=== PATIENT | female | born 1980 | race Caucasian/White ===

== ENCOUNTER → 2016-10-22 | Outpatient (CLI) | payer OTHER ==
--- NOTE | 2016-10-22 11:14 | US ---
October 22, 2015 Dear Ciera Calderon NP, Thank you for allowing us to see your patient regarding AMA. As you know she is a 35 year-old gravid a 1, para 0. Her due date is 03/07/17 which is based on . Her current gestational age based on is dating is 20 weeks 4 days. She had normal NIPT. Number of fetuses: 1 Placental location: anterior Cord Insertion: Central presentation: variable Cervix: 3.5 cm MVP: 4.7 cm The adnexa were evaluated. No pathology was seen. Right ovary not seen Left ovary not seen Measurements: Biparietal diameter: 49 mm 20 weeks, 6 days Head circumference: 190 mm 21 weeks, 2 days Abdominal circumference: 162 mm 21 weeks, 3 days Femur length: 34 mm 20 weeks, 4 days Humerus length: 32 mm 20 weeks, 4 days Transcerebellar diameter: 22 mm 20 weeks, 3 days Average ultrasound age: 21 weeks, 1 days Estimated weight: 390 gm weight percentile: 68 % ANATOMY Upper extremities: Normal Lower extremities: Normal Supratentorial brain: Normal Lateral ventricle: 5.2 mm Posterior fossa: Normal Cisterna Magna: 3.4 mm Spine: Normal Nuchal fold: 3.4 mm Face: Normal nose, lip, profile, alveolar ridge Heart: Normal rate, rhythm, axis, 4 chamber view, LVOT, RVOT, IVS Stomach: Normal Diaphragm Normal Umbilical cord insertion: Normal Right kidney: Normal Left kidney: Normal Bladder: Normal Number of cord vessels: Three. Impression: This is a 35 year-old, 1, para 0 at 20 weeks, 4 days gestation. 1. SIUP with biometry cw ga of 20 weeks. Nl MVP. No anatomic abnormalities noted. 2. AMA - normal NIPT, I reviewed the detection rate and chromosomes for NIPT and the option of amnioc entesis as well. She declined amniocentesis today, understanding the limitations of NIPT and ultrasou nd in detection of aneuploidy and other syndromes. Thank you for allowing me to see your patient. Approximately 15 minutes was spent with the patient a nd 15 was spent discussing her issues. Sarah Pinto MD Diagnosis Division of Maternal Medicine Department of Obstetrics and Gynecology [facility]
--- NOTE | 2016-10-22 18:31 | US ---
Ultrasound Obstetric Detailed Evaluation Indication: Advanced maternal age. The estimated gestational age by LMP is 20 weeks and 4 days samir damian an EDC of March 07, 2017. Comparison: August 2016. Findings: Number: 1 Presentation: Variable Placental location: Anterior Cervix: 3.5 cm MVP: 4.7 cm heart rate: 146 bpm. Right ovary measures 2.4 x 3 x 0.9 cm 3 left ovary measures 2.1 x 2.2 x 1.1 cm. Biometry: Biparietal diameter: 48.7 mm 20 weeks, 6 days Head circumference: 189.68 mm 21 weeks, 2 days Abdominal circumference: 162.13 mm 21 weeks, 3 days Femur length: 33.65 mm 20 weeks, 4 days Humerus length: 31.57 mm 20 weeks, 4 days Transcerebellar diameter: 21.66 mm 20 weeks, 3 days HC/AC: 1.17 (1.09 - 1.26) FL/BPD: 69% FL/AC: 21% Average ultrasound age: 21 weeks, 1 days EDC based on today's average ultrasound age: March 07, 2017 Estimated weight is 390 gms +/- 57 gms. The estimated weight is at the 68 % based on previous dating. ANATOMY SURVEY: Supratentorial brain: Normal Posterior fossa: Normal Spine: Normal Nuchal fold: Normal Nose and lips: Normal Facial profile: Normal Heart: Four chamber heart. 146 bpm. Intact intraventricular septum. Cardiac outflow tracts: Normal Stomach: Normal Umbilical cord insertion: Normal Kidneys: Normal, no pyelectasis Bladder: Normal Number of cord vessels: Three Upper extremities: Visualized Lower extremities: Visualized. Impression: 1. Living marie in variable presentation. 2. Size concordant with dates. 3. No overt anomalies detected. 4. Please see Dr. Sarah Pinto's consult and recommendations.
== END ==
LOC: FIMAGING 09:24
PROVIDERS: ATTEND Midwife
DX: O09.512 Supervision of elderly primigravida, second trimester (principal); Z3A.21 21 weeks gestation of pregnancy

== ENCOUNTER 2017-01-27 19:41 | Observation (INO) | payer OTHER ==
[2017-01-27 20:14] LABS: ABSOLUTE IMMATURE GRANULOCYTES 0.14 10^3/uL (0.00-0.10); ADD DIFF? NO; ADD MORPH? NO; ADD SCAN? NO; ATYPICAL LYMPHOCYTE FLAG 0 (0-99); FRAGMENT RBC FLAG 0 (0-99); HEMATOCRIT 34.7 % (38.0-47.0); HEMOGLOBIN 11.6 g/dL (12.6-16.3); LEFT SHIFT FLG 10 (0-99); LIPEMIA HEMOLYSIS FLAG 80 (0-99); MEAN CELL HEMOGLOBIN 29.9 pg (27.9-34.1); MEAN CELL HEMOGLOBIN CONCENTR. 33.4 g/dL (32.4-36.7); MEAN CELL VOLUME 89.4 fL (81.5-99.8); MEAN PLATELET VOLUME 11.3 fL (8.7-11.7); PLATELET CLUMPS FLAG 0 (0-99); PLATELET COUNT 229 10^3/uL (150-400); RED BLOOD CELL COUNT 3.88 10^6/uL (4.18-5.33); RED CELL DISTRIBUTION WIDTH 13.8 % (11.5-15.2)
[2017-01-27] MEDS ORDERED: TERBUTALINE SULFATE 1 MG/ML VIAL SC ONE (20:30)
[2017-01-27] MEDS ORDERED: LR 1,000 ML IV ONE (20:30)
[2017-01-27 20:39] LABS: ALANINE AMINOTRANSFERASE 25 IU/L (9-52); ALKALINE PHOSPHATASE 120 IU/L (38-126); AMYLASE 50 IU/L (30-110); ANION GAP 6 mEq/L (8-16); ASPARTATE AMINOTRANSFERASE 23 IU/L (14-46); BILIRUBIN,TOTAL 0.6 mg/dL (0.1-1.4); CALCIUM 8.4 mg/dL (8.5-10.4); CARBON DIOXIDE 20 mEq/l (22-31); CHLORIDE 105 mEq/L (97-110); CREATININE 0.7 mg/dL (0.6-1.0); GLOMERULAR FILTRATION RATE > 60; GLUCOSE 107 mg/dL (70-100); POTASSIUM 3.5 mEq/L (3.5-5.2); SODIUM 131 mEq/L (134-144); URIC ACID 4.8 mg/dL (2.5-6.8)
[2017-01-27] MEDS ORDERED: FAMOTIDINE 20 MG/2 ML SDV IVP ONE (22:07)
[2017-01-27] MEDS ORDERED: ONDANSETRON 4 MG/2 ML VIAL IVP PRN (22:15)
[2017-01-27] MEDS: LR 1,000 ML IV SCH (22:27)
[2017-01-27] MEDS ORDERED: FAMOTIDINE 20 MG/NACL 50 ML IV ONE (22:30)
[2017-01-27 22:57] LABS: COLOR PALE YELLOW; LEUKOCYTE ESTERASE,URINE NEGATIVE (NEGATIVE); NITRITE,URINE NEGATIVE (NEGATIVE)
--- NOTE | 2017-01-27 23:32 | GHP ---
[f rep st] HISTORY AND PHYSICAL DATE OF ADMISSION: 01/27/2017 CHIEF COMPLAINT: Worsening abdominal pain. HISTORY OF PRESENT ILLNESS: The patient is a 36-year-old 1, para 0 female at 34 weeks and 3 days estimated gestational age, who presents to Labor and Delivery with report of worsening right-s ided abdominal pain. She reports feeling intermittent discomfort 4 nights ago. She reports initial ly her right-sided pain was 10 point and isolated in the mid axillary area; however, it has graduall y worsened in intensity, frequency, and duration until the night of admission. She reports intermit tent periods of nausea but at the most has only occurred for approximately 5-minute intervals 1 or 2 times in the last 24 hours. She denies feeling any contractions, denies leakage of fluid or vagina l bleeding, and reports good movement. On the night of admission, she describes her pain as a tightness on the whole right side of her abdomen to the right of the midline that is worse with mov ement and ambulation. She denies any other known triggers. She reports the pain is not worse with eating. She denies any vomiting, fevers or chills, hematuria or dysuria, diarrhea or constipation o r any other complaints at this time. She reports her has been uncomplicated and she has b een receiving care under Miah Alexis, certified nurse bakery associate. She is over the age of 35 and has had normal genetic testing. She received a flu and Tdap vaccines. PAST MEDICAL HISTORY: Mild exercise-induced asthma. PAST SURGICAL HISTORY: None. ALLERGIES: No known drug allergies. MEDICATIONS: vitamin and iron daily. OB LABS: Blood type B positive, antibody screen negative, rubella and varicella immune, RPR nonreac tive, urine culture negative in July 2016, hepatitis B surface antigen and HIV negative, gonorrhe a and chlamydia negative, 1-hour GTT normal, and mild anemia with hematocrit of 33 at 28 weeks. PHYSICAL EXAMINATION: VITAL SIGNS: Blood pressure 117/65, heart rate 88, temp 37.8 degrees Celsius , O2 saturation 100%. heart rate tracing 150s with accelerations and mild variable decelerati ons and moderate variability present. Overall, reassuring for gestational age. TOCOMETER: Initial ly possible contractions were noted q.2-4 minutes. However, with further observation that was deter mined to irritability with true contractions approximately 1 every 15 minutes. GENERAL: No acute d istress at rest. Well-developed, well-nourished female. CHEST: Clear to auscultation bilaterally. ABDOMEN: Soft and tender to palpation predominantly in the right lower quadrant with some tenderne ss extending medially. Initially some concern was present for possible fundal tenderness; however, on further exam that was not present. Mild guarding present with palpation in the right lower quadr ant. BACK: No CVA tenderness present. Mild flank tenderness to palpation on the right side. VAGI NAL: Cervix was closed, long and high, medium and posterior. LABS: CBC showed a white blood cell count of 14, hemoglobin 11, hematocrit 34, and platelets normal at 229. Metabolic panel relatively normal for with normal AST and ALT, and normal amylase and lipa se. ASSESSMENT: Patient is a 36-year-old G1, P0 at 34 weeks and 3 days estimated gestational age with w orsening right lower quadrant pain. Differential diagnosis includes appendicitis, nephrolithiasis, evolving cholecystitis or cholelithiasis, evolving chorioamnionitis or placental abruption. PLAN: 1. Admit for observation. 2. status reassuring. We will transition to monitoring q.6 hours. 3. contractions: Initially some uterine irritability and contractions were noted w hich resolved with IV fluid hydration after she was given a liter bolus of IV fluids as well as 1 do se of terbutaline 25 mcg subcu. The patient does not feel any of her contractions and her cervix is closed, therefore I am not concerned about her being in labor. 4. Right lower quadrant pain: The differential diagnosis has been reviewed with the patient in formerly [facility] as well as her . Given the primary location of the pain in her right lower quadrant, [place] bat[place] the top 2 possible diagnoses of concern include appendicitis and nephrolithiasis. She is rel atively nontender in the right upper quadrant; therefore, cholecystitis or cholelithiasis are less l ikely in the differential. Her white blood cell count is 14, which is normal for this stage of preg russel. Therefore, I do not highly suspect chorioamnionitis as a cause for her pain. She is not hav ing any vaginal bleeding and the status is reassuring; therefore, I am not suspicious of abrup tion at this time. We will further evaluate the patient with imaging to include an ultrasound of he r appendix, kidneys, and gallbladder to evaluate for different sources of pain. We will also get an ultrasound of the baby to include the placenta to assure no obstetrical source of abnormalities to indicate a uterine source of pain. We will get a urinalysis to evaluate for any hematuria that woul d suggest a kidney stone. 5. Pain: The patient currently ranks her pain at a level of 3/10 at rest. She currently declines any pain medication, although she does report it gets up to a 6/10 or 8/10 max with ambulation. We will give morphine p.r.n. severe pain. 6. Zofran as needed for nausea. 7. Will consult general surgery if needed for further evaluation. /[id number]/MODL
[2017-01-28] MEDS ORDERED: ERTAPENEM 1 GM in NS 100 ML IV ONE (00:30)
--- NOTE | 2017-01-28 00:52 | OBPROG ---
OBG Progress Note Assessment/Plan: Assessment: 36 y/o at 34+4 weeks EGA with acute RLQ pain and imaging suggesting appendicitis - US of the RLQ shows a enlarged, noncompressible appendicitis with appendicolith in the appendix tip suggesting acute appendicitis with appendicolith in the tip. Possible periappendiceal abscess versus less likely right ovary with a cyst. - Mild bilateral hydronephrosis. Normal liver and gallbladder. - ultrasound is normal with fetus in the vertex presentation, anterior placenta without previa, cervix closed, 5.2cm abdominally, unremarkable anatomy. Plan: 1) RLQ pain now with imaging suggesting appendicitis. I consulted general surgeon environmental associate, Dr Galan, and he is currently busy in another case in the OR. I spoke with him, reviewed this patient's case and US imaging results, and he is requesting a MRI to help determine if surgery or conservative management with IR drainage and IV antibiotics would be best. I ordered Invanz to give the patient immediately, per his recommendations. She just now had a fever to 38.0C. Will draw blood cultures x 2. 2) Counseling: I counseled the patient and regarding all findings and the plan of care now for further imaging w/ MRI. They agree to proceed. 3) Contractions: Mild irritability seen, commonly seen w/ infections. No ctx seen; pt asymptomatic, will monitor closely. 4) status: NSTs q6 hrs, reassuring and reactive on last NST. Will start continuous monitoring. Will consult MFM regarding steroid course; I would suspect it could complicate following her conservatively, so I will wait for now until plan for surgery has been decided. 5) ITALO duncan for DVT prevention All questions answered. 01/28/17 01:06 Subjective: Pt reports pain has increased slightly to a 6/10. Fever noted as well @ 38.0C. No other symptoms. Not feeling any contractions Objective: 01/27/17 20:00 01/27/17 20:00 Uric Acid 4.8 mg/dL (2.5-6.8) 01/27/17 20:00 Total Bilirubin 0.6 mg/dL (0.1-1.4) 01/27/17 20:00 AST 23 IU/L (14-46) 01/27/17 20:00 ALT 25 IU/L (9-52) 04/10/17 20:00 Temp Pulse Resp BP Pulse Ox 84 117/65 01/27/17 20:34 01/27/17 20:34 Current Contraction Pattern: Irregular (irritability) ICD10 Worksheet Patient Problems: Problems Problem Status Onset RLQ abdominal pain Acute - ICD10 Problem Qualifiers (1) RLQ abdominal pain
[2017-01-28] MEDS ORDERED: ACETAMINOPHEN 650 MG SUPP PR PRN (01:10)
[2017-01-28] MEDS ORDERED: TERBUTALINE SULFATE 1 MG/ML VIAL SC ONE ×3 (04:26→14:00)
[2017-01-28] MEDS ORDERED: BETAMETHASONE IM SYRINGE IM ONE ×2 (04:28→14:28)
--- NOTE | 2017-01-28 04:32 | OBPROG ---
OBG Progress Note Assessment/Plan: Assessment: 36 y/o at 34+4 weeks EGA with suspected appendicitis - Plan: 1) RLQ pain now with imaging suggesting appendicitis - general surgery has decided to proceed with surgery. Pt counseled regarding the plan for BTMZ 12.5mg IM prior to surgery for FLM; discussed and approved this plan [facility]/ [facility] Dr Carolyn Jeong. Plan terbulatine prior to surgery and also to repeat in the PACU. Discussed plan w/ the surgeon; due to the placement of the monitors, he reports we will not be able to monitor during the surgery. The status has been reassuring, so I am not concerned. All questions answered. 2) Counseling: I counseled the patient and regarding risk of PTL/ delivery w/ surgery; they agree to proceed, as I do agree this is the best plan of action to get her healthy. 3) Contractions: Mild irritability seen, commonly seen w/ infections. Pt asymptomatic, will monitor closely. 4) status: Reassuring. 5) ITALO duncan for DVT prevention 01/28/17 04:34 Subjective: Pt still has pain, no more fevers s/p tylenol. Objective: 01/27/17 20:00 01/27/17 20:00 Patient ABO/Rh B POSITIVE 01/27/17 20:00 Uric Acid 4.8 mg/dL (2.5-6.8) 01/27/17 20:00 Total Bilirubin 0.6 mg/dL (0.1-1.4) 01/27/17 20:00 AST 23 IU/L (14-46) 01/27/17 20:00 ALT 25 IU/L (9-52) 01/27/17 20:00 Temp Pulse Resp BP Pulse Ox 84 117/65 01/27/17 20:34 01/27/17 20:34 Current Contraction Pattern: Regular FHR (bpm): 140 FHR Pattern Variability: Moderate FHR Category: 1 ICD10 Worksheet Patient Problems: Problems Problem Status Onset RLQ abdominal pain Acute - ICD10 Problem Qualifiers (1) RLQ abdominal pain
[2017-01-28] MEDS ORDERED: ROCURONIUM 50 MG/5 ML VIAL ONE (04:56)
[2017-01-28] MEDS ORDERED: LIDOCAINE 2% 5 ML SDV ONE (04:56)
[2017-01-28] MEDS ORDERED: SUCCINYLCHOLINE CHLORIDE*ANESTHESIA ONLY*200 MG/10 ML SYR IVP ONE (04:56)
[2017-01-28] MEDS ORDERED: DEXAMETHASONE 4 MG/ML VIAL ONE (04:56)
[2017-01-28] MEDS ORDERED: fentaNYL 100 MCG/2 ML INJ ONE ×3 (04:58→07:08)
[2017-01-28] MEDS ORDERED: PROPOFOL 200 MG/20 ML VIAL ONE (04:59)
[2017-01-28] MEDS ORDERED: METOPROLOL TARTRATE 5 MG/5 ML INJ ONE (05:31)
[2017-01-28] MEDS ORDERED: SUGAMMADEX SODIUM 200 MG/2 ML VIAL IVP ONE (05:38)
[2017-01-28] MEDS ORDERED: PROAIR IN PRN (06:17)
[2017-01-28] MEDS ORDERED: ALBUTEROL 60 PUFFS/8 GM MDI IH PRN (06:23)
--- NOTE | 2017-01-28 06:29 | POSTOPPROG ---
Post Op Note Date of Operation: 01/28/17 Surgeon: Ernie Galan Anesthesia: GET(General Endotracheal) Pre-op Diagnosis: acute appendicitis Post-op Diagnosis: acute appendicitis with phlegmon Indication: acute appendicitis Procedure: open appendectomy Findings: acute appendicitis with phlegmon Inf/Abcess present in the surg proc area at time of surgery?: Yes Depth: Organ Space EBL: Minimal Total fluids administered: 700 Complications: none Specimen(s): appendix
[2017-01-28 07:23] VITALS: TEMP 99.5
[2017-01-28 07:25] VITALS: RESP 23; O2SAT 95
[2017-01-28] MEDS ORDERED: ACETAMINOPHEN 325 MG TAB PO PRN (08:31)
--- NOTE | 2017-01-28 08:38 | GCON ---
[f rep st] PATIENT: Era Marcos CONSULTATION REFERRING PHYSICIAN: Carolyn Rodriguez MD REASON FOR CONSULTATION: Thirty four week and appendicitis. HISTORY: The patient was at home and noticed pain last (today is Friday morning). The pain was intermittent, on Friday she was better. She had chills on Friday, and a fever, she presented to the hospital. She had no vomiting, but she would have nausea intermittently. She last ate at 7:30 p.m., and she also had about 500 cc of oral fluids. Interestingly, her brother had minimal discomfort and presented with a ruptured appendix at the same age. SOCIAL HISTORY: She does not smoke, nor does she drink. ALLERGIES: She has no known drug allergies. PAST MEDICAL HISTORY: She has exercise-induced asthma. MEDICATIONS: She uses albuterol on as needed basis. She takes iron pills and vitamins, as well as Tums. PAST SURGICAL HISTORY: Her only surgery has been wisdom tooth extraction. There is no history of rheumatic fever, tuberculosis, hepatitis, HIV or transfusions. REVIEW OF SYSTEMS: Is not helpful at this point. DATA: An ultrasound had been performed, which showed a probable appendicitis, and a questionable periappendiceal abscess or ovarian process. To further clarify the process, an MRI was obtained, to see if there was a drainable abscess. There is a non drainable tissue collection approximately 4 cm in diameter above the pelvic brim. The appendix is approximately 13-14 mm and thick walled[place] [address], with 84% neutrophils. Hematocrit is 37. The platelet count is 229. Her sodium is 131, potassium is 3.5, BUN 9, creatinine is 0.7. Lipase is 76, urine specific gravity is 1.002. Her initial temperature on admission was 37.8, it dropped to 37.6, then went to 38.0. She had received 650 mg of Tylenol at 1:30. She is somewhat tender in the right lower quadrant. On MRI, the appendix is at the level of the umbilicus. Given her gestational age, this is not a case which would be amenable to a laparoscopic approach so an open appendectomy will be performed. Patient understands the possibility that labor might be induced by the surgery. Dr. Rodriguez is going to give the patient 12.5 mg of betamethasone for lung maturation. She will also give the patient a dose of terbutaline just prior to surgery. /[id number]/MODL MTDD
[2017-01-28] MEDS: HYDROCODONE/APAP 5/325 TAB PO PRN ×3 (08:44→15:02)
[2017-01-28] MEDS ORDERED: LIDOCAINE 2% JELLY 5 ML TUBE TP ONE (08:45)
--- NOTE | 2017-01-28 09:09 | GOP ---
[f rep st] OPERATIVE REPORT DATE OF OPERATION: 01/28/2017 SURGEON: Ernie Galan MD PREOPERATIVE DIAGNOSIS: 1. Acute appendicitis. 2. 34+ weeks . POSTOPERATIVE DIAGNOSIS: 1. Acute appendicitis with phlegmon. 2. 34+ weeks . PROCEDURE PERFORMED: Open appendectomy. FINDINGS: Acute appendicitis with phlegmon, 34+ weeks . ESTIMATED BLOOD LOSS: Minimal. INDICATIONS: Acute appendicitis, 34+ weeks . DESCRIPTION OF PROCEDURE: The patient was placed on the operating table in supine position. After induction of adequate general endotracheal anesthesia, a bump was placed under her right hip to keep the uterus off the inferior vena cava. A surgical time-out was carried out and agreed to by all members of the operative team. An oblique incision is made laterally at the level of the umbilicus which is the level of the phlegmon seen on CT. Skin is sharply incised. Dissection was continued with Bovie electrocautery down to the aponeurosis of the external oblique which is inscribed along the axis fibers. The external oblique and internal oblique muscles were spread along the axis of their fibers. Internal oblique was also spread to expose the peritoneum which was elevated between 2 hemostats. The peritoneum was entered sharply. With a finger placed deep for protection against bowel injury, cautery is used to extend it both inferior medial and posterior superiorly. The cecum is right in the wound. It is carefully elevated. The tip of the cecum is tethered by the phlegmonous mass. Careful finger dissection is carried out to free the intense inflammatory adhesions. A small amount of pus was released. The Harmonic scalpel was brought to the table. With its assistance, adhesive bands were lysed. The specimen was finally delivered into the field. The mesoappendix was divided with the harmonic scalpel down to its base. An Endo-PUNEET stapler was used to staple and transect the cecum leaving a cuff with the appendix. Specimen was removed from the table. Copious irrigation was carried out. After irrigation returns clear and there is no sign of bleeding, the perineum was closed with a running suture of #0 chromic. The wound was well irrigated. The transverse abdominis muscle is approximated in a simple suture of #0 chromic. The irrigation was carried out. The internal oblique muscles were approximated with 3 sutures of 0 chromic. The wound was well irrigated. 3-0 Vicryl was used to approximate the fibers of the external oblique. The fascia of the external oblique was closed with a running suture #3-0 PDS. Interrupted 4-0 Vicryl sutures were placed in Mercedes's fascia. Note is made the wound has been irrigated at each level. The skin was closed with lois. Sterile dressings applied. The patient is transferred to recovery in stable and satisfactory condition. FLUIDS: 700 cc. /[id number]/MODL MTDD
--- NOTE | 2017-01-28 09:41 | SOAPPROG ---
SOAP Progress Note Assessment/Plan: Assessment: 36 y.o. female at 34 weeks s/p appendectomy POD #1. Recovering well with good pain control. VSS- afebrile NST- reactive CAT I. No current evidence of uterine activity. Denies VB, LOF or UCs/ cramping Plan: VS Q4H. EFM Q6H. Routine post-op orders. Anticipate discharge tomorrow. 01/28/17 09:38 Subjective: Reports feeling well with good pain control. Reports good movement. Denies vaginal bleeding, uterine cramping or leaking amniotic fluid. Incision CDI. Eating and drinking well without nausea or vomiting. present and supportive at bedside. Objective: Vital Signs Temp Pulse Resp BP Pulse Ox 37.5 C 97 23 H 137/73 H 95 01/28/17 06:13 01/28/17 06:13 01/28/17 07:15 01/28/17 07:11 01/28/17 07:15 Laboratory Results 01/27/17 20:00 01/27/17 20:00 01/27/17 01/28/17 01/29/17 05:59 05:59 05:59 Intake Total 750 Output Total 5 Balance 745 - Time Spent With Patient Time Spent With Patient: 20 minutes - Pending Discharge Pending Discharge Within 24 Hours: Yes Pending Discharge Date: 01/29/17 Pending Discharge Time: 11:00 Physical Exam - Physical Exam General Appearance: WD/WN, alert, mild distress EENT: normal ENT inspection Neck: non-tender, full range of motion, normal inspection Respiratory: chest non-tender, lungs clear, normal breath sounds Cardiac/Chest: regular rate, rhythm Abdomen: non-tender, soft Pelvic Exam: deferred Rectal: deferred Back: Normal inspection Skin: normal color, warm/dry Extremities: non-tender, normal inspection Neuro/Psych: alert, normal mood/affect, oriented x 3 ICD10 Worksheet Patient Problems: Problems Problem Status Onset RLQ abdominal pain Acute
[2017-01-28] MEDS: LR 1,000 ML IV SCH (09:51)
[2017-01-28] MEDS ORDERED: IBUPROFEN 600 MG TAB PO SCH (12:00)
[2017-01-28] MEDS ORDERED: ZOLPIDEM TARTRATE 5 MG TAB PO PRN (13:38)
[2017-01-28] MEDS ORDERED: LIDOCAINE 1% 30 ML SDV ONE (14:00)
[2017-01-28] MEDS ORDERED: MISOPROSTOL 200 MCG TAB ONE (14:01)
[2017-01-28] MEDS ORDERED: OXYTOCIN 10 UNIT/ML VIAL ONE (14:01)
[2017-01-28] MEDS ORDERED: AMMONIA AROMATIC 1 EACH AMP IH ONE (14:01)
[2017-01-28] MEDS ORDERED: TERBUTALINE SULFATE 1 MG/ML VIAL ONE (14:01)
[2017-01-28] MEDS ORDERED: OLIVE OIL 118 ML BTL ONE (14:01)
[2017-01-28 14:11] VITALS: BP 114/58; PULSE 75
--- NOTE | 2017-01-28 15:07 | SOAPPROG ---
SOAP Progress Note Assessment/Plan: Assessment: 36 y.o. female at 34 weeks s/p appendectomy POD #1. Recovering well with good pain control. VSS- afebrile NST- reactive CAT I. Denies VB or LOF. Patient called out to RN with increased cramping and rectal pressure. Exam performed with SVE- 0/40/-4. CL- 3.5-4.0 cm. Plan: VS Q4H. EFM Q6H. Routine post-op orders. Anticipate discharge tomorrow. Reassured patient of findings. Will start patient on Procardia 10mg PO TID. Administer second dose of betamethasone. Continue to monitor for PTL 01/28/17 09:38 01/28/17 15:04 Subjective: Patient called out to nurse with concerns of increased uterine cramping and rectal pressure. SVE- 0/40/-4 IBOW. CL- 3.5-4.0 cm. Unable to collect FFN due to SVE last night. Denies VB or LOF> Objective: Vital Signs Temp Pulse Resp BP Pulse Ox 37.5 C 75 23 H 114/58 L 95 01/28/17 06:13 01/28/17 14:07 01/28/17 07:15 01/28/17 14:07 01/28/17 07:15 Laboratory Results 01/27/17 20:00 01/27/17 20:00 01/27/17 01/28/17 01/29/17 05:59 05:59 05:59 Intake Total 750 Output Total 5 Balance 745 - Time Spent With Patient Time Spent With Patient: 20 minutes - Pending Discharge Pending Discharge Within 24 Hours: Yes Pending Discharge Date: 01/29/17 Pending Discharge Time: 11:00 Physical Exam - Physical Exam General Appearance: WD/WN, alert, mild distress EENT: normal ENT inspection Neck: non-tender, full range of motion, normal inspection Respiratory: lungs clear Cardiac/Chest: regular rate, rhythm Abdomen: non-tender, soft Pelvic Exam: normal external exam Rectal: deferred Back: Normal inspection Skin: normal color, warm/dry Extremities: non-tender Neuro/Psych: alert, normal mood/affect, oriented x 3 ICD10 Worksheet Patient Problems: Problems Problem Status Onset RLQ abdominal pain Acute
[2017-01-28] MEDS ORDERED: ALBUTEROL 200 PUFFS/18 GM MDI IH PRN (15:51)
--- NOTE | 2017-01-28 17:10 | SOAPPROG ---
SOAP Progress Note Assessment/Plan: Assessment: 36yo F 34 wks POD#1 s/p open appy Still with RLQ pain, River and PRN morphine Pain exacerbated by uterine contractions Regular diet as tolerated Discussed with Dr. Najera S: pain was 6/10 when i arrived in the room and escalated to 8/10 due to uterine contraction. tolerating regular diet O: laying in bed, uncomfortable No increased WOB Gravid uterus, abd nontender to light palpation. Incision CDI without e/o infection Plan: 01/28/17 17:07 Objective: Vital Signs Temp Pulse Resp BP Pulse Ox 37.5 C 75 23 H 114/58 L 95 01/28/17 06:13 01/28/17 14:07 01/28/17 07:15 01/28/17 14:07 01/28/17 07:15 Laboratory Results 01/27/17 20:00 01/27/17 20:00 01/27/17 01/28/17 01/29/17 05:59 05:59 05:59 Intake Total 750 Output Total 5 Balance 745 ICD10 Worksheet Patient Problems: Problems Problem Status Onset RLQ abdominal pain Acute
[2017-01-28] MEDS: NIFEdipine 10 MG CAP PO SCH ×2 (19:01→22:06)
[2017-01-28] MEDS ORDERED: ERTAPENEM 1 GM in NS 100 ML IV SCH (20:00)
[2017-01-28] MEDS ORDERED: NS 1,000 ML IV ONE ×2 (20:00)
[2017-01-28] MEDS ORDERED: FAMOTIDINE 20 MG/NACL 50 ML IV ONE (20:00)
[2017-01-29] MEDS: HYDROCODONE/APAP 5/325 TAB PO PRN ×2 (02:35→10:56)
[2017-01-29] MEDS ORDERED: BETAMETHASONE IM SYRINGE IM ONE (04:30)
[2017-01-29 06:02] LABS: ABSOLUTE IMMATURE GRANULOCYTES 0.16 10^3/uL (0.00-0.10); ADD DIFF? NO; ADD MORPH? NO; ADD SCAN? NO; ATYPICAL LYMPHOCYTE FLAG 0 (0-99); FRAGMENT RBC FLAG 0 (0-99); HEMOGLOBIN 9.8 g/dL (12.6-16.3); LEFT SHIFT FLG 0 (0-99); LIPEMIA HEMOLYSIS FLAG 90 (0-99); MEAN CELL HEMOGLOBIN 30.2 pg (27.9-34.1); MEAN CELL HEMOGLOBIN CONCENTR. 33.8 g/dL (32.4-36.7); MEAN CELL VOLUME 89.2 fL (81.5-99.8); MEAN PLATELET VOLUME 11.1 fL (8.7-11.7); PLATELET CLUMPS FLAG 0 (0-99); PLATELET COUNT 188 10^3/uL (150-400); RED BLOOD CELL COUNT 3.25 10^6/uL (4.18-5.33); RED CELL DISTRIBUTION WIDTH 14.5 % (11.5-15.2)
--- NOTE | 2017-01-29 08:09 | OBGCSDC ---
General Delivery Information - General Info : 1 Para: 0 Delivery Physician/CNM: Ernie Galan Labs: Patient ABO/Rh B POSITIVE 01/27/17 20:00 Hct 29.0 % (38.0-47.0) L 01/29/17 05:45 - Delivery Anesthesia: GET(General Endotracheal) Discharge Information - Discharge Information Discharge Medications: Iron, Vitamins, Vicodin Complications: appendectomy at 34 weeks. Condition: Good Instruction/Follow Up: See Instruction Sheet Discharge Physician/CNM: Ciera Calderon Discharge Date: 01/29/17 Dictated: No
[2017-01-29] MEDS: NIFEdipine 10 MG CAP PO SCH (08:43)
[2017-01-29] MEDS ORDERED: IRON POLYSAC/IRON HEME 28 MG TAB PO SCH (09:00)
[2017-01-29] MEDS ORDERED: CALCIUM CARBONATE 500 MG CHEWABLE TAB PO PRN (11:52)
--- NOTE | 2017-01-29 13:28 | SOAPPROG ---
SOAP Progress Note Assessment/Plan: Assessment: 36yo F 34 wks POD#2 s/p open appy Pain significantly improved compared to yestreday Regular diet as tolerated Dispo: ok to dc home if cleared by OB. F/u 1 week for staple removal. Seen c Dr. hendrickson S: pain significantly improved this morning. tolerating regular diet. passing flatus. O: laying in bed, comfortable, NAD, family at bedside No increased WOB Gravid uterus, abd nontender to palpation. Incision CDI without e/o infection Objective: Vital Signs Temp Pulse Resp BP Pulse Ox 37.5 C 75 23 H 114/58 L 95 01/28/17 06:13 01/28/17 14:07 01/28/17 07:15 01/28/17 14:07 01/28/17 07:15 Laboratory Results 01/29/17 05:45 01/27/17 20:00 01/28/17 01/29/17 01/30/17 05:59 05:59 05:59 Intake Total 750 Output Total 5 Balance 745 ICD10 Worksheet Patient Problems: Problems Problem Status Onset RLQ abdominal pain Acute
== END 2017-01-29 15:05 | disposition home or self-care (01) ==
LOC: FLD 19:41
PROVIDERS: ADMIT Obstetrics & Gynecology; ATTEND Obstetrics & Gynecology
PROC: 0DTJ0ZZ Resection of Appendix, Open Approach (ICD-10-PCS; principal; 2017-01-27)
DX: O99.613 Diseases of the digestive system complicating pregnancy, third trimester (principal); K35.80 Unspecified acute appendicitis; Z3A.34 34 weeks gestation of pregnancy
CPT/HCPCS: 44950; 59025; 74181; 76700; 76816; 76857; G0378; J0330; J0702; J1100; J1335; J2704; J3010; J3105

== ENCOUNTER 2017-01-30 19:20 | Observation (INO) | payer OTHER ==
[2017-01-30] MEDS ORDERED: LR 1,000 ML IV ONE (20:30)
[2017-01-30] MEDS ORDERED: OXYTOCIN/RINGERS LACTATE 1,000 ML IV PRN (20:54)
[2017-01-30] MEDS ORDERED: EPSOM SALT 454 GM TP PRN (20:54)
[2017-01-30] MEDS ORDERED: LIDOCAINE 1% 30 ML SDV SC PRN (20:54)
[2017-01-30] MEDS ORDERED: TERBUTALINE SULFATE 1 MG/ML VIAL IV PRN (20:54)
[2017-01-30] MEDS ORDERED: MAGNESIUM HYDROXIDE 30 ML UDCUP PO PRN (20:54)
[2017-01-30] MEDS: SIMETHICONE 80 MG TAB CHEW PO SCH (21:15)
[2017-01-30 21:34] LABS: % IMMATURE GRANULYOCYTES 2.3 % (0.0-1.1); ADD DIFF? NO; ADD MORPH? NO; ADD SCAN? NO; ATYPICAL LYMPHOCYTE FLAG 0 (0-99); FRAGMENT RBC FLAG 0 (0-99); HEMATOCRIT 31.1 % (38.0-47.0); HEMOGLOBIN 10.6 g/dL (12.6-16.3); LEFT SHIFT FLG 20 (0-99); LIPEMIA HEMOLYSIS FLAG 90 (0-99); MEAN CELL HEMOGLOBIN 30.5 pg (27.9-34.1); MEAN CELL HEMOGLOBIN CONCENTR. 34.1 g/dL (32.4-36.7); MEAN CELL VOLUME 89.6 fL (81.5-99.8); MEAN PLATELET VOLUME 11.1 fL (8.7-11.7); PLATELET CLUMPS FLAG 0 (0-99); PLATELET COUNT 241 10^3/uL (150-400); RED BLOOD CELL COUNT 3.47 10^6/uL (4.18-5.33); RED CELL DISTRIBUTION WIDTH 13.9 % (11.5-15.2)
[2017-01-30] MEDS ORDERED: GLYCERIN ADULT 1 EACH SUPP PR PRN (21:35)
[2017-01-30] MEDS ORDERED: FAMOTIDINE 20 MG/NACL 50 ML IV ONE (21:35)
--- NOTE | 2017-01-30 21:56 | GHP ---
[f rep st] HISTORY AND PHYSICAL DATE OF ADMISSION: 01/30/2017 CHIEF COMPLAINT: Abdominal pain after appendectomy. HISTORY OF PRESENT ILLNESS: Patient is a 36-year-old, G1, P0, at 34 weeks and 6 days gestation. She was discharged from the hospital yesterday and is currently postoperative day #2, status post an open appendectomy. She had an uncomplicated surgery and postoperative course. She initially was doing well at home yesterday. Her pain was well controlled with Jefferson 5/325 mg po x2 every 4 hours, she was passing gas, and tolerating a regular diet. Today, she initially felt well in the morning. She took 2 Jefferson at 7 a.m. and then 2 more at 4 p.m.; however, after 4 p.m. she began to develop worsening pain which was stated to be a 2 to 3 out of 10 at rest but then increased to excruciating pain when she tried to ambulate or move. Of note, she was passing flatus yesterday but has not passed any today. Also, she has not had a bowel movement for multiple days. She denies uterine contractions. Her baby is active and she denies vaginal bleeding or leaking fluid. At home, she had a temperature orally up to 100.6. When she called in complaining of worsening pain and fevers , it was advised that she come to the hospital for further evaluation. She is AMA and has had normal genetic testing. She has received flu and Tdap. Her OB labs are notable for blood type B positive, antibody screen negative. Rubella and varicella immune. RPR nonreactive. Urine culture negative. Hep B surface antigen and HIV negative. Gonorrhea and chlamydia negative. One hour Glucola normal and mild anemia with a recent hematocrit of 29.0 which was postop. PAST MEDICAL HISTORY: Mild exercise-induced asthma. PAST SURGICAL HISTORY: Postop day 2 from open appendectomy. ALLERGIES: No known drug allergies. MEDICATIONS: vitamins, iron, Jefferson 5/325, Colace, senna. PHYSICAL EXAM: VITAL SIGNS: heart rate baseline 130, moderate variability, positive accelerations, no decelerations. Tocometer notable for no uterine contractions and irritability. Maternal vital signs: Pulse 75, blood pressure 123/66, respirations 16, temp 37.2. GENERAL: Alert, awake, alert and oriented. Respirations are clear to auscultation bilaterally. CARDIOVASCULAR: Regular rate and rhythm. ABDOMEN: Gravid uterus consistent with gestational age. Appendectomy incision is clean, dry, and intact with lois. No drainage or erythema. Moderate tenderness on the right side of the abdomen greater than the left. No rebound or guarding. Abdomen is soft without distention. Some high-pitched bowel sounds are noted. EXTREMITIES: Warm. 2+ pulses. Trace edema in bilateral lower extremities to mid calves. SVE : cervix firm/closed/posterior LABS: Pending CBC and lactic acid given patient's report of fever at home not obtained at this time as patient is a hard stick and we are working to obtain intravascular access. ASSESSMENT: The patient is a 36-year-old, G1, P0, at 34 weeks and 6 days postop day 2 from open appendectomy with worsening abdominal pain and low grade temps at home. Afebrile here with normal vitals signs. No signs of incisional infection or VTE. She denies symptoms of UTI. She may have mild atelectasis at the cause of her low grade temp at home. She is nontoxic appearing without signs of systemic infection. Based on her description of the fact that she stopped passing flatus this morning and has not had a bowel movement, I expect her discomfort may be gas pain from constipation/ileus. No evidence that she is acutely infected or septic with labs pending. status reassuring. No evidence of labor. PLAN: Admit to labor and delivery for observation, intermittent monitoring, bowel protocol. We will give 1 dose of IV morphine 2 mg now as patient is uncomfortable and then plan to continue her p.o. regimen of Jefferson 5/ 325 mg 2 tablets every 4 hours. Regular diet. Will plan discharge home after she has a bowel movement and after her pain control has improved. Pending CBC and lactic acid to evaluate for systemic infection. We will also collect urinalysis to rule out UTI. Will perform fever work-up including CXR if she spikes a temperature. /[id number]/MODL MTDD
[2017-01-30] MEDS: DOCUSATE SODIUM 100 MG CAP PO SCH (22:24)
[2017-01-30 22:28] LABS: COLOR YELLOW; LEUKOCYTE ESTERASE,URINE NEGATIVE (NEGATIVE); NITRITE,URINE NEGATIVE (NEGATIVE)
[2017-01-31] MEDS: HYDROCODONE/APAP 5/325 TAB PO PRN ×2 (00:53→06:28)
[2017-01-31] MEDS ORDERED: ZOLPIDEM TARTRATE 5 MG TAB PO ONE (03:30)
[2017-01-31] MEDS: DOCUSATE SODIUM 100 MG CAP PO SCH (09:22)
[2017-01-31] MEDS: SIMETHICONE 80 MG TAB CHEW PO SCH (09:22)
--- NOTE | 2017-01-31 12:32 | GDS ---
[f rep st] DISCHARGE SUMMARY ADMISSION DIAGNOSIS: G1, P0 at 34 weeks 6 days gestation, postoperative day #2 status post open appendectomy, postoperative ileus. DISCHARGE DIAGNOSIS: G1, P0 at 35 weeks 0 days gestation, postoperative day #3 status post open appendectomy, postoperative ileus resolved. PROCEDURES: None. CONSULTS: None. COMPLICATIONS: None. HOSPITAL COURSE: The patient was readmitted to the hospital. She had initially been discharged on postop day #1 status post open appendectomy that was uncomplicated. However, she called the office on postoperative day #2, having some low-grade fevers to 100.6 at home and worsening abdominal pain not controlled with Munden. It was advised that she present to the hospital. When she presented, she was noted to have a reassuring status with a reactive tracing. No evidence of labor. Stable vital signs; she was afebrile with a normal lactic acid and no signs of systemic infection. Her exam was also notable for a well-healing appendectomy scar that was closed with lois that was clean, dry and intact, with no evidence of wound infection. She also had no evidence of UTI, lower extremity DVT, or other cause for infection. However , she had stopped passing flatus and was having some upper abdominal pain and high-pitched bowel sounds consistent with early ileus or constipation. It was recommended that she stay overnight in the hospital to start a bowel regimen and to ensure that her pain control had improved. After a bowel regimen was implemented, she had 2 bowel movements and her pain control was much improved. She continued to have a reactive heart rate tracing and no signs of labor. She was discharged on hospital day #2 with much improved pain control. She was also tolerating a regular diet, ambulating, voiding, and passing gas. She has plans to follow up in the outpatient setting in both OB and General Surgery for followup. DISCHARGE MEDICATIONS: Munden 5/325 mg 1-2 tabs p.o. every 4 hours as needed for pain. DISCHARGE INSTRUCTIONS: She was given routine obstetrical and postoperative followup instructions. /[id number]/MODL MTDD
== END 2017-01-31 09:55 | disposition home or self-care (01) ==
LOC: FLD 19:20
PROVIDERS: ADMIT Obstetrics & Gynecology; ATTEND Obstetrics & Gynecology
DX: K56.7 Ileus, unspecified (principal); Z3A.34 34 weeks gestation of pregnancy
CPT/HCPCS: 59025; G0378

== ENCOUNTER 2017-02-08 02:10 | Inpatient (IN) | payer OTHER ==
[2017-02-08 03:03] LABS: ALANINE AMINOTRANSFERASE 34 IU/L (9-52); ALBUMIN 3.4 g/dL (3.5-5.0); ALKALINE PHOSPHATASE 258 IU/L (38-126); ANION GAP 11 mEq/L (8-16); ASPARTATE AMINOTRANSFERASE 26 IU/L (14-46); BILIRUBIN,TOTAL 0.7 mg/dL (0.1-1.4); CALCIUM 9.5 mg/dL (8.5-10.4); CARBON DIOXIDE 22 mEq/l (22-31); CHLORIDE 100 mEq/L (97-110); CREATININE 0.8 mg/dL (0.6-1.0); GLOMERULAR FILTRATION RATE > 60; GLUCOSE 77 mg/dL (70-100); POTASSIUM 4.3 mEq/L (3.5-5.2); SODIUM 133 mEq/L (134-144); TOTAL PROTEIN 6.9 g/dL (6.3-8.2)
[2017-02-08 03:13] LABS: ADD DIFF? YES; ADD MORPH? NO; ADD SCAN? NO; ATYPICAL LYMPHOCYTE FLAG 0 (0-99); FRAGMENT RBC FLAG 0 (0-99); HEMATOCRIT 37.7 % (38.0-47.0); HEMOGLOBIN 12.8 g/dL (12.6-16.3); LEFT SHIFT FLG 50 (0-99); LIPEMIA HEMOLYSIS FLAG 90 (0-99); MEAN CELL HEMOGLOBIN 30.1 pg (27.9-34.1); MEAN CELL VOLUME 88.7 fL (81.5-99.8); PLATELET CLUMPS FLAG 0 (0-99); PLATELET COUNT 401 10^3/uL (150-400); RED BLOOD CELL COUNT 4.25 10^6/uL (4.18-5.33); RED CELL DISTRIBUTION WIDTH 13.9 % (11.5-15.2)
[2017-02-08] MEDS ORDERED: ALBUTEROL 3 ML DEYVIAL IH PRN (03:28)
[2017-02-08] MEDS ORDERED: LR 1,000 ML IV SCH ×2 (03:30→09:30)
[2017-02-08] MEDS ORDERED: CEPACOL LOZENGE PO PRN (03:30)
[2017-02-08] MEDS ORDERED: ACETAMINOPHEN 325 MG TAB PO ONE (03:30)
[2017-02-08 03:58] LABS: GIANT PLATELETS PRESENT; LARGE PLATELETS PRESENT; PLATELET ESTIMATE INCREASED (ADEQ); POLYCHROMASIA 1+
[2017-02-08 03:59] LABS: TOXIC GRANULATION PRESENT; TOXIC VACUOLIZATION PRESENT
[2017-02-08] MEDS ORDERED: ERTAPENEM 1 GM in NS 100 ML IV ONE (04:00)
[2017-02-08 04:05] LABS: COLOR YELLOW; LEUKOCYTE ESTERASE,URINE NEGATIVE (NEGATIVE); NITRITE,URINE NEGATIVE (NEGATIVE)
[2017-02-08 04:09] LABS: BACTERIA TRACE /hpf (NONE SEEN); MUCUS TRACE /lpf (NONE-1+)
[2017-02-08] MEDS ORDERED: ACETAMINOPHEN 325 MG TAB PO PRN (09:16)
[2017-02-08] MEDS: ACETAMINOPHEN 650 MG SUPP PR PRN ×2 (09:32→14:17)
[2017-02-08] MEDS ORDERED: ALBUTEROL 60 PUFFS/8 GM MDI IH PRN (10:16)
--- NOTE | 2017-02-08 11:12 | GHP ---
[f rep st] HISTORY AND PHYSICAL DATE OF ADMISSION: 02/08/2017 CHIEF COMPLAINT: Fever, abdominal pain, and pink vaginal discharge. HISTORY OF PRESENT ILLNESS: Patient is a 36-year-old 1, para 0, female at 36 weeks and 1 day estimated gestational age who presents to labor and delivery with complaints of fever, abdominal pain and pink vaginal discharge. The patient has a recent history significant for an open appendectomy on January 28, [address] Ernie Galan. She was readmitted postop day 2 for pain control. She reports since that time always feeling a little bit of lower abdominal pain, and then, two days prior to admission, she had a fever to 101F and a dry, nonproductive cough. She went to her primary care physician, Dr Streeter, who treated her for upper respiratory infection with azithromycin and pulmicort. She reports having a fever the evening prior to admission to 102 degrees Fahrenheit at 6:00 p.m. She called at midnight reporting a recurrent fever to 101F and some pink vaginal discharge. She was advised to come to the hospital at that time. The patient currently denies any leakage of fluid; she reports a small amount of pink discharge and light brown vaginal bleeding. She reports feeling a little bit of cramping but no regular contractions. She reports feeling good movement. She reports this nonproductive cough for the last 48 hours despite being on azithromycin. She denies any shortness of breath, or chest pain. She denies any upper back pain. She reports feeling rectal pressure, that comes and goes intermittently, and what she describes as "GI discomfort." She reports having one bowel movement every day and no diarrhea or constipation. Since admission, she does report having 4 bowel movements however they were not loose or bloody. She denies any hematuria or dysuria. The patient did take Tylenol at 2300 the evening of admission and still had a fever upon her arrival to labor and delivery to 38.1 degree Celsius. course is significant only for advanced maternal age with normal genetic testing. She had received the flu and Tdap vaccines. Her labs are significant for blood type B positive, antibody screen negative, rubella and varicella immune, RPR nonreactive, urine culture negative, hepatitis B surface antigen, HIV negative, gonorrhea and chlamydia negative, 1- hour GTT normal. PAST MEDICAL HISTORY: Mild exercise-induced asthma. PAST SURGICAL HISTORY: Open appendectomy on January 28, 2017. ALLERGIES: No known drug allergies. MEDICATIONS: vitamins, Pulmicort, azithromycin, iron and Colace. PHYSICAL EXAMINATION: VITAL SIGNS: Blood pressure 142/74. Heart rate 88. Respiratory rate 22. Temp 38.1 degrees Celsius on admission. heart rate tracing 160 with moderate variability, accelerations present. No decelerations present. Tocometer contractions q.3 minutes that resolved and have currently resumed q.2- 4 minutes. GENERAL: Diaphoretic with fever and chills. CHEST: Clear to auscultation bilaterally. No wheezes, rales, or rhonchi. CARDIOVASCULAR: Regular rate and rhythm. ABDOMEN: Tender to palpation throughout her abdomen with difficulty ascertaining if there is any distinct fundal tenderness. There is definitely tenderness around her entire abdomen which seems to be greater in the right lower quadrant with rebound and guarding present. PELVIC: Cervical exam 1 cm dilated, long and high. LABORATORY DATA: CBC significant for an elevated white count at 24, hematocrit of 37 and platelets 401 with a left shift with bands present as well. Chemistry panel is essentially normal with elevated alkaline phosphatase which is appropriate for . Normal liver function tests. Urinalysis significant for 2+ blood and only trace bacteria with white blood cells of 1-3. Blood cultures drawn and pending. Urine culture pending. Lactic acid ordered and pending. Viral and influenza PCR testing pending. RADIOLOGY: Abdominal ultrasound was nondiagnostic and negative. A renal ultrasound showed mild dilation of the right renal pelvis. No signs of abscess or fluid collection present. Chest x-ray was just performed and is negative for any acute pulmonary process. HOSPITAL COURSE: The patient was admitted overnight and had a workup performed to evaluate for possible intraabdominal abscess from her appendectomy. The ultrasound imaging was negative. She was given a dose of Invanz 1 g IV which would cover multiple sources of possible infections given her respiratory symptoms and abdominal pain s/p recent appendectomy. The patient initially defervesced and was afebrile with a temp of 37.6 degrees Celsius this morning at 7:30 after being given a repeat dose of Tylenol. However, the patient is now continuing to be febrile with a temperature up to 39.6F degrees at 9:30 AM. The general surgery team has been consulted, and they recommended to proceed with an MRI for evaluation to rule out a possible postoperative abscess. I also consulted the perinatologist at the [facility], Dr Conde, and discussed that there is no obvious signs of ruptured membranes and no other signs of chorioamnionitis at this time. The baby is intermittently tachycardic with her fevers, but the majority of the time has not shown signs of tachycardia and the status has been reassuring. Dr. Conde at the [facility] agreed with the current workup and plan. She agreed with my plan that if there was no definitive diagnosis discovered in the near future, that it would be appropriate for transfer of care and amniocentesis to rule out chorioamnionitis. ASSESSMENT: Patient is a 36-year-old 1, para 0, female at 36 weeks and 1 day estimated gestational age with fever, abdominal pain, and cough. PLAN: 1. Admit to inpatient status. 2. status currently reassuring with one period of tachycardia that was temporary after her return from radiology that now has returned to baseline of 150s and reassuring with accelerations and moderate variability present. Will continue with continuous monitoring and plan for delivery if any signs of non-reassuring status. 3. No signs of labor at this time. 4. Fever of unknown origin. Differential diagnosis includes acute abdominal process with risk of postoperative complication from her appendectomy, pulmonary source of fever, pulmonary embolism, chorioamnionitis, viral source of infection. Will proceed with MRI as discussed with general surgery to evaluate for any postoperative abscess. Her chest x-ray currently appears negative for any acute pulmonary process. She has been given one dose of Invanz 1g IV. Will continue treating her with an albuterol inhaler for her cough. Will consider transfer of care if there is no obvious intraabdominal postoperative source of infection to consider an amniocentesis to rule out chorioamnionitis. Appreciate general surgery consult. I have also consulted the hospitalist who has just returned my call to further discuss this patient and assure that we are monitoring closely for any signs of sepsis. Her blood cultures are currently pending. 5. SCDs for DVT prophylaxis. /[id number]/MODL MTDD
--- NOTE | 2017-02-08 11:38 | OBPROG ---
OBG Progress Note Assessment/Plan: Assessment: 36 y/o at 36+1 weeks EGA with fever, abdominal pain - Plan: 1) status: Currently reassuring over all w/ accels and moderate variability present. One short period of tachycardia w/ baseline in the 170's with late decels occurred after her return from her CXR for about 3 ctx that was also associated with a high fever to 39.5C. We initiated resuscitation maneuvers w/ position changes (she was also flat on her back during evaluation by general surgeon) and O2, and the status is now reassuring w/ an associated drop her in her fever to 38.4C. Over all currently reassuring, will allow to go to MRI for imaging and monitor closely. 2) Fever - CXR negative. Viral PCR testing ordered. C.diff ordered. General surgery consulted and awaiting MRI results. Hospitalist consulted for assistance due to my concern for her developing sepsis. Perinatologist consulted who agrees with plan and available for further consultation if needed. 3) SCDs for DVT prophylaxis. 02/08/17 11:31 Subjective: Pt has no new complaints - still w/ fever, chills, abd pain. No lof/vb and good FM. Objective: 02/08/17 02:36 02/08/17 02:36 Total Bilirubin 0.7 mg/dL (0.1-1.4) 02/08/17 02:36 AST 26 IU/L (14-46) 02/08/17 02:36 ALT 34 IU/L (9-52) 02/08/17 02:36 Current Contraction Pattern: Regular FHR (bpm): 150 FHR Pattern Variability: Moderate FHR Category: 2 (one segment of late decels, now 150's reassuring with accels and no decels and moderate variability present) ICD10 Worksheet Patient Problems: Problems Problem Status Onset Abdominal pain affecting , antepartum Acute Fever and chills Acute RLQ abdominal pain Acute - ICD10 Problem Qualifiers (1) Fever and chills (2) Abdominal pain affecting , antepartum
[2017-02-08 11:54] LABS: INR 1.01 (0.83-1.16); PROTIME(PATIENT) 13.2 SEC (12.0-15.0)
[2017-02-08 11:55] LABS: APTT 34.5 SEC (23.0-38.0)
--- NOTE | 2017-02-08 12:18 | GCON ---
[f rep st] CONSULTATION REASON FOR CONSULTATION: Management of fever. HISTORY OF PRESENT ILLNESS: A 36-year-old white female with a 36-week who is presenting w ith complaints of cough, abdominal pain, and fever. The patient presented to the hospital on 2016 with complaints of abdominal discomfort and was found by abdominal MRI to have acute appendicit is. She underwent open appendectomy on 01/28/2017 and was discharged postoperatively on 01/29/2017. The patient reports having persistent pain in her lower right abdomen postoperatively that she rep orts certainly did not improve. She has then noted over the course of the last 5-6 days that her ab dominal discomfort has worsened. She localizes the pain to the surgical site as well as the upper r ight quadrant. Pain can easily radiate around her abdomen and can be very forceful twinges of spasm ing pain in her abdomen. She reports that she has had no nausea or vomiting and has had normal stoo ling, nonbloody, daily over the course of the last 2 weeks postop. Patient also reports a cough deuce t she describes is nonproductive that began approximately 4 days ago and then approximately, similar timing, noted low-grade fevers at home which she could tolerate without treatment. She then had 10 2-degree fever, which prompted her presenting for evaluation. Upon arrival to [facility], patient has a very high fever, peaking at 39.6. Is desc ribing persistent cough. Denies shortness of breath. Denies chest pain. Has horrible abdominal di scomfort at rest and markedly more provoked by examination. Denies any lower extremity edema or any rashes. Has had limited food intake in the last couple of days but has attempted as best she could to keep up her fluid intake. PAST MEDICAL HISTORY: Acute appendicitis, status post open appendectomy. SOCIAL HISTORY: Negative for tobacco, alcohol, or illicit drugs. FAMILY HISTORY: Positive for diabetes in her father. REVIEW OF SYSTEMS: A 10-point review of systems is negative with the exception of that reported in the HPI. PHYSICAL EXAMINATION: VITAL SIGNS: Blood pressure 120/76, fever of 39.6, heart rate 109, respirato ry rate 26, satting in the mid 90s on 2 L of oxygen. GENERAL: This is a healthy-appearing young fe male, uncomfortable in bed. HEENT: Notable for dry mucous membranes. Eye exam is negative for any icterus. CARDIAC: Patient sounds tachycardic but regular. PULMONARY: Good respiratory effort. Clear to auscultation bilaterally. No rales or rhonchi are appreciated. GASTROINTESTINAL: Positiv e bowel sounds. Gravid abdomen. The patient is markedly tender to even minimal palpation throughou t her abdomen, markedly more so over her surgical site. MUSCULOSKELETAL: Negative for any lower ex tremity edema. SKIN: Negative for any rashes. NEUROLOGIC: She is alert and oriented x3. PSYCHIA TRIC: She seems frightened but cooperative on interview and examination. LABORATORY DATA: White count is 24.4, hematocrit 37.7, and hemoglobin 12.8 (recent baselines are lo wer at 10 and 31), platelet count of 401. Patient has 25% bands. Sodium of 133, creatinine 0.8, a lk phos of 258. Urinalysis shows 2+ blood, 1-3 red, 1-3 white, with trace bacteria. Chest x-ray, which I personally reviewed and interpreted, shows no acute infiltrates or edema. ASSESSMENT AND PLAN: This is a 36-year-old female who is 36 weeks , presenting with fever a nd abdominal pain. 1. Sepsis: The patient has leukocytosis, fever, tachycardia. Presumed source is intraabdominal ba sed on my examination. Lower suspicion for pneumonia related to the cough as her chest imaging is q uite normal. Blood cultures have been sent from admission. Respiratory, viral cultures, and influe nza have been sent. I agree with broad-spectrum ertapenem at this time. Would give the patient inc reased fluid bolusing and support as she appears concentrated on labs and dry on examination. 2. Acute leukocytosis: Again, suspect this is likely intraabdominal in nature. Worrisome the beatriz ent has had symptoms since her postop time period. Agree with blood cultures to rule out a blood louie rne infection at this time and again agree with ertapenem, which is safe at this stage in . We will await blood cultures and MRI imaging of the abdomen to look for a possible postoperative a bscess. 3. Hyponatremia, suspect secondary to hypovolemia. I have asked the L and D nurses to fluid bolus the patient. We can recheck labs in the morning. 4. Dehydration: Patient appears concentrated on labs and on examination. Reports limited p.o. int jayla in the last 48 hours secondary to abdominal discomfort. Again, we will hydrate and follow her c linical course. 5. Thirty-six week : This is being managed by primary obstetrics. We do need abdominal i maging with MRI. The baby is currently having deceleration, so we will need to safely make decision s related to early delivery versus imaging for a safe intraoperative course. 6. Prophylaxis: Per L and D docs. 7. Diet: N.p.o. until an operative plan, either with delivery or general surgery is made. DISPOSITION: I expect greater than 2 midnights. The patient is 36 weeks , presenting with sepsis, concerning for an intraabdominal source. Thank you for the consultation. We will follow along with you. /[id number]/MODL
--- NOTE | 2017-02-08 12:18 | SOAPPROG ---
SOAP Progress Note Assessment/Plan: Assessment: 36 yo , 36 weeks , s/p open appendectomy with general anesthesia on 01/30. Now, patient has an abdominal abcess, fever, increased WBC. Dr Rodriguez request anesthesia in house for concerning strip. I arrived at 11am. I talked to the patient, consented her for GA in case she will be taken to the OR for abcess drainage with or without Csection.Risks and benefits discussed, questions answered. Plan: Stand by 02/08/17 12:12 Objective: Laboratory Results 02/08/17 02:36 02/08/17 02:36 PT 13.2 SEC (12.0-15.0) 02/08/17 11:28 INR 1.01 (0.83-1.16) 02/08/17 11:28 ICD10 Worksheet Patient Problems: Problems Problem Status Onset Abdominal pain affecting , antepartum Acute Fever and chills Acute RLQ abdominal pain Acute
--- NOTE | 2017-02-08 15:58 | GCON ---
[f rep st] CONSULTATION CONSULTATION. DATE OF CONSULTATION: 02/08/2017 CHIEF COMPLAINT: Abdominal pain. HISTORY OF PRESENT ILLNESS: This is a 36-year-old female who is 36 weeks . She is status po st open appendectomy per Dr. Galan performed now 11 days ago here in the hospital. The patient stat es that she has had some abdominal pain after surgery and was actually evaluated in the clinic this last week where it was felt that this was normal routine postoperative pain and that she was overall doing well. At the time other than the pain, had no complaints. Since then the patient states that yesterday more so in the evening she began to have worsening abdo fatemeh pain, now associated with fever initially to 101, then up to 102 and subsequently presented he re for further evaluation. On my evaluation she has fairly significant diffuse abdominal pain. She does state that it is proba malcolm worse in the right lower quadrant, at times in the epigastrium. She also states that she has yin d a cough and a sensation in her throat as though she needs to continually cough. She denies having any nausea or vomiting, but does endorse having fevers and chills the highest of which was 102 take n on her admission here. She has subsequently been evaluated by myself and her clerical adviser, Dr. Den leone, for possible complications status post appendectomy. PAST MEDICAL HISTORY: Exercise-induced asthma. PAST SURGICAL HISTORY: Open appendectomy performed on January 28. ALLERGIES: None. CURRENT MEDICATIONS: Include vitamins, inhalers and stool softeners. REVIEW OF SYSTEMS: A full 10-point review was performed and unless explicitly stated above is other blas negative. PHYSICAL EXAMINATION: VITAL SIGNS: T-max of 39.5, heart rate 88, blood pressure 140/70, respirator y rate 22. GENERAL: She is alert, oriented, in mild amount of distress. CARDIOVASCULAR: She has a regular rate and rhythm without any murmurs. LUNGS: Clear. ABDOMEN: Distended consistent with a 36-week . Her right lower quadrant incision is covered with Steri-Strips and is otherwis e clean, dry and intact. She is tender in the right lower quadrant, but more so in the right lower quadrant than all other quadrants without rebound tenderness or guarding. EXTREMITIES: Warm. LABORATORY: Are significant for a leukocytosis to 24,000. IMAGING: Includes a chest x-ray which was unremarkable. She also had an abdominal MRI at the surgi naila team request which shows changes consistent with postoperative changes following an appendectomy , without any fluid collection or precious abscess identified. ASSESSMENT/PLAN: A 36-year-old female, 36 weeks with significantly elevated fever and whit e blood cell count with abdominal pain. I am concerned given the patient's abdominal exam which is what prompted her abdominal MR scan. The MRI at this point in time is reassuring from a general alex gical standpoint as I can evaluate that entire right colon as well as the staple line and it all dottie ears to be intact without any signs of complication. While this is reassuring from that standpoint, it still raises question as to what is driving her significantly elevated fever, leukocytosis and a bdominal pain. I have had multiple conversations with Dr. Rodriguez regarding this and do not feel a t this point in time that it is an acute general surgical issue. She will continue to monitor the pa tient and will be in touch with the perinatologist at [facility] regarding further management and wo rkup as I feel given the overall reassuring nature of the MR, that we need to pursue other causes of infection in this 36-year-old female who is 36 weeks . /[id number]/MODL
--- NOTE | 2017-02-08 16:22 | GDS ---
[f rep st] DISCHARGE SUMMARY DISCHARGE DIAGNOSES: 1. Intrauterine at 36 weeks and 1 day. 2. Fever of unknown origin. 3. Nonproductive cough. 4. Status post a recent appendectomy. 5. Sepsis. HOSPITAL COURSE: The patient is a 36-year-old 1, para 0 female at 36 weeks and 1 day estima rosario gestational age who presented on the day of admission with fever, abdominal pain, and nonproduct guillermo cough. The patient has been evaluated with an abdominal ultrasound, retroperitoneal renal ultra sound, a chest x-ray, abdominal MRI. The patient has been seen by our general surgeon, and hospital ist. She has continued to have fevers ranging up to 39.7 at 1500 despite 1 dose of Invanz 1 g IV th is morning. The patient's labs are significant for an elevated white blood cell count at 24, hemato crit of 37 and platelets of 401 with a left shift. Her coagulation panel was normal with normal PT, PTT; lactic acid was normal at 1.2, chemistry panel was normal with normal liver function tests, an d urinalysis was significant for 2+ blood and trace bacteria and white blood cells 1-3. Her imaging has included an abdominal ultrasound which was nondiagnostic, a chest x-ray, which was negative for any active pulmonary process, and an abdominal MRI which showed right lower quadrant postoperative changes without definite precious abscess pocket localized. The patient has been given Tylenol for her fever and IV fluid boluses on 3 separate occasions during her admission which were 500 cc each. Sh e has continued to demonstrate significant abdominal tenderness and remains febrile. The stat us is overall reassuring with episodic periods of tachycardia that are in association with her fever. Currently, the heart rate tracing is in the 160s with moderate variability and sponta neous accelerations and no decelerations present. She has had intermittent periods of contractions which are currently q.2-3 minutes, and she has demonstrated no cervical change between the time of a dmission and her most recent cervical exam which was just performed 5 minutes ago showing her cervix was 1 cm long, high and posterior. There have been no signs of ruptured membranes. She has descri bed no leakage of fluid, and there has been no fluid leakage on exam. An AmniSure was not performed since she had a small amount of dark bleeding initially on presentation. I have consulted the General Surgery team who found no indication to proceed with surgery at this ti me given the MRI findings. I consulted the hospitalist who agreed with the current plan of care and then I consulted our perinatologist, Dr. Conde, at the [facility] who agrees with plan for matute sfer to proceed with an amniocentesis to definitively rule out or in the diagnosis of chorioamnionit is which would dictate plans for delivery. I counseled the patient and her regarding this p tonya, and they agreed to proceed. All questions were answered. PLAN: Will transfer the patient to the [facility] via the [facility] team. She is currently stable for transport. /[id number]/MODL
[2017-02-08] MEDS ORDERED: ERTAPENEM 1 GM in NS 100 ML IV SCH (21:00)
== END 2017-02-08 15:45 | disposition short-term general hospital (02) | DRG 872 ==
LOC: FLD 02:10 → OBSVTOIN 02:10
PROVIDERS: ADMIT Obstetrics & Gynecology; ATTEND Obstetrics & Gynecology
DX: A41.9 Sepsis, unspecified organism (principal); O99.89 Other specified diseases and conditions complicating pregnancy, childbirth and the puerperium; Z3A.36 36 weeks gestation of pregnancy; R50.9 Fever, unspecified; R05 Cough
CPT/HCPCS: J1335

== ENCOUNTER → 2017-11-26 | Outpatient (CLI) | payer OTHER | LOC: FIMAGING 15:52 | PROVIDERS: ATTEND Obstetrics & Gynecology | DX: E04.9 Nontoxic goiter, unspecified (principal) ==

== ENCOUNTER 2017-12-24 12:09 | Emergency (ER) | payer OTHER ==
[2017-12-24] MEDS ORDERED: diphenhydrAMINE 25 MG CAP PO ONE (12:16)
[2017-12-24] MEDS ORDERED: FAMOTIDINE 20 MG TAB PO ONE (12:16)
[2017-12-24] MEDS ORDERED: predniSONE 20 MG TAB PO ONE (12:16)
--- NOTE | 2017-12-24 12:18 | EDPHY ---
H & P Time Seen by Provider: 12/24/17 12:10 HPI/ROS: CHIEF COMPLAINT: Allergic reaction HISTORY OF PRESENT ILLNESS: Patient is a 37-year-old female who is getting an MRI of her bladder with contrast. About 15 min after the contrast she noticed some swelling to her right upper eyelid and some numbness to the right side of her mouth. She was brought over from MRI for an allergic reaction. No difficulty breathing. She does have a history of asthma. No rash. No trouble speaking. No swelling her mouth. No GI symptoms. She states that the numbness on the side of her mouth is already improving. She did not have any symptoms on the left eye or face. No difficulty moving. REVIEW OF SYSTEMS: Constitutional: denies: chills, fever, recent illness, recent injury EENTM: See HPI denies: blurred vision, double vision, nose congestion Respiratory: denies: cough, shortness of breath Cardiac: denies: chest pain, irregular heart rate, lightheadedness, palpitations Gastrointestinal/Abdominal: denies: abdominal pain, diarrhea, nausea, vomiting, blood streaked stools Genitourinary: denies: dysuria, frequency, hematuria, pain Musculoskeletal: denies: joint pain, muscle pain Skin: denies: lesions, rash, jaundice, bruising Neurological: denies: headache, numbness, paresthesia, tingling, dizziness, weakness Hematologic/Lymphatic: denies: blood clots, easy bleeding, easy bruising Immunologic/allergic: denies: HIV/AIDS, transplant EXAM: GENERAL: Well-appearing, well-nourished and in no acute distress. HEAD: Atraumatic, normocephalic. EYES: Right upper eyelid edematous, no urticaria, a normal vision. Pupils equal round and reactive to light, extraocular movements intact, sclera anicteric, conjunctiva are normal. ENT: No swelling intraorally or of lips. No rash. TMs normal, nares patent, oropharynx clear without exudates. Moist mucous membranes. NECK: Normal range of motion, supple without lymphadenopathy or JVD. LUNGS: Breath sounds clear to auscultation bilaterally and equal. No wheezes rales or rhonchi. HEART: Regular rate and rhythm without murmurs, rubs or gallops. ABDOMEN: Soft, nontender, normoactive bowel sounds. No guarding, no rebound. No masses appreciated. BACK: No CVA tenderness, no spinal tenderness, step-offs or deformities EXTREMITIES: Normal range of motion, no pitting or edema. No clubbing or cyanosis. NEUROLOGICAL: Cranial nerves II through XII grossly intact. Normal speech, normal gait. 5/5 strength, normal movement in all extremities, normal sensation PSYCH: Normal mood, normal affect. SKIN: Warm, dry, normal turgor, no visible rashes or lesions. Source: Patient Exam Limitations: No limitations - Medical/Surgical History Hx Asthma: Yes Hx Chronic Respiratory Disease: No Hx Diabetes: No Hx Cardiac Disease: No Hx Renal Disease: No Hx Cirrhosis: No Hx Alcoholism: No Other PMH: wisdom teeth - sophomore in high school. appy 02/03 - Family History Significant Family History: No pertinent family hx - Social History Smoking Status: Never smoked Alcohol Use: Sober Drug Use: None Constitutional: Initial Vital Signs Temperature (C) 36.9 C 12/24/17 12:10 Heart Rate 66 12/24/17 12:10 Respiratory Rate 18 12/24/17 12:10 Blood Pressure 119/84 H 12/24/17 12:10 O2 Sat (%) 100 12/24/17 12:10 O2 Delivery Mode Room Air Allergies/Adverse Reactions: gadobutrol [From Gadavist] Allergy (Verified 12/24/17 12:14) Home Medications: Medication Instructions Recorded Bcp 12/24/17 Medical Decision Making ED Course/Re-evaluation: 1:30 p.m. the patient is feeling much better. Her eyelid edema has improved but not yet completely resolved. She is eager to go home and declines further observation. I encouraged her to continue Benadryl as needed. We discussed indications for returning. Differential Diagnosis: Partial list of the Differential diagnosis considered include but were not limited to; allergic reaction, anaphylaxis and although unlikely based on the history and physical exam, I also considered sepsis, trauma, infection. I discussed these differential diagnoses and the plan with the patient as well as the usual and expected course. The patient understands that the diagnosis is provisional and that in medicine we are not always correct and that further workup is often warranted. Usual and customary warnings were given. All of the patient's questions were answered. The patient was instructed to return to the emergency department should the symptoms at all worsen or return, otherwise to followup with the physician as we discussed. - Data Points Medications Given: Discontinued Medications Diphenhydramine HCl (Benadryl) 50 mg PO EDNOW ONE Stop: 12/24/17 12:17 Last Admin: 12/24/17 12:24 Dose: 50 mg Famotidine (Pepcid) 40 mg PO EDNOW ONE Stop: 12/24/17 12:17 Last Admin: 12/24/17 12:24 Dose: 40 mg Prednisone (Prednisone) 60 mg PO EDNOW ONE Stop: 12/24/17 12:17 Last Admin: 12/24/17 12:24 Dose: 60 mg Departure - Departure Disposition: Home, Routine, Self-Care Clinical Impression: Allergic reaction Qualifiers: Encounter type: initial encounter Qualified Code(s): T78.40XA - Allergy, unspecified, initial encounter Condition: Fair Instructions: General Allergic Reaction (ED) Referrals: Barbie Streeter MD [Primary Care Provider] - As per Instructions
[2017-12-24 12:21] VITALS: RESP 18; TEMP 98.4
[2017-12-24 13:31] VITALS: BP 108/78; PULSE 80; O2SAT 98
== END 2017-12-24 13:40 | disposition home or self-care (01) ==
LOC: CED 12:09
DX: R20.0 Anesthesia of skin (principal); T50.8X5A Adverse effect of diagnostic agents, initial encounter; J45.909 Unspecified asthma, uncomplicated
CPT/HCPCS: J7512

== ENCOUNTER 2018-04-29 16:31 | Outpatient (CLI) | payer OTHER ==
[2018-04-29] MEDS ORDERED: METHOTREXATE 25 MG/ML SYRINGE IM ONE ×2 (18:04→18:45)
== END 2018-04-29 19:24 | disposition home or self-care (01) ==
LOC: FOBOP 16:31
PROVIDERS: ATTEND Obstetrics & Gynecology
PROC: 3E023GC Introduction of Other Therapeutic Substance into Muscle, Percutaneous Approach (ICD-10-PCS; principal; 2018-04-29)
DX: O00.90 Unspecified ectopic pregnancy without intrauterine pregnancy (principal)
CPT/HCPCS: J9250

== ENCOUNTER → 2018-07-20 | Outpatient (CLI) | payer OTHER ==
[~2018-07-20] MED LIST: IOPAMIDOL (ISOVUE 370) 100 ML BTL IV ONE
== END ==
LOC: FIMAGING 12:40
PROVIDERS: ATTEND Obstetrics & Gynecology Reproductive Endocrinology
PROC: BU1 Imaging, Female Reproductive System, Fluoroscopy (ICD-10-PCS; principal; 2018-07-20)
DX: Z31.41 Encounter for fertility testing (principal)
CPT/HCPCS: Q9967

== ENCOUNTER 2018-10-30 06:10 | Emergency (ER) | payer OTHER ==
--- NOTE | 2018-10-30 06:44 | EDPHY ---
H & P Stated Complaint: unable to urinate since tube ligation yesterday Time Seen by Provider: 10/30/18 06:24 HPI/ROS: HPI The patient presents with urinary retention which has been present since she had a tubal ligation done yesterday at [facility]. She was unable to void after the operation and required straight catheter. Her operation finished at about 2:30 p.m. Yesterday and since then she has not had a complete void. She says she is able to void about a tbsp of clear urine with significant effort. She has been up all night because of pressure sensation in her low abdomen. She did received general anesthesia for her tubal ligation. She does not have any vaginal swelling. She feels well otherwise. REVIEW OF SYSTEMS 10 systems were reviewed and negative with the exception of the elements mentioned in the history of present illness. PMHx: Tubal ligation as above, primary OBGYN is Dr. Rodriguez PHYSICAL General Appearance: Alert, no distress Eyes: Pupils equal and round no pallor or injection ENT, Mouth: Mucous membranes moist Respiratory: There are no retractions, lungs are clear to auscultation Cardiovascular: Regular rate and rhythm Gastrointestinal: Abdomen is somewhat distended, she has suprapubic tenderness , surgical dressings are clean, dry, intact, bowel sounds normal Neurological: A&O, moves all extremities Skin: Warm and dry, no rashes Musculoskeletal: Neck is supple non tender Extremities: symmetrical, full range of motion Psychiatric: Patient is oriented X 3, there is no agitation Source: Patient Exam Limitations: No limitations - Personal History Current Tetanus Diphtheria and Acellular Pertussis (TDAP): Yes - Medical/Surgical History Hx Asthma: No Hx Chronic Respiratory Disease: No Hx Diabetes: No Hx Cardiac Disease: No Hx Renal Disease: No Hx Cirrhosis: No Hx Alcoholism: No Other PMH: wisdom teeth - sophomore in high school. appy 02/03 - Social History Smoking Status: Never smoked Constitutional: Initial Vital Signs Heart Rate 68 10/30/18 06:14 Respiratory Rate 20 10/30/18 06:14 Blood Pressure 118/71 10/30/18 06:14 O2 Sat (%) 100 10/30/18 06:14 O2 Delivery Mode Room Air Allergies/Adverse Reactions: gadobutrol [From Gadavist] Allergy (Verified 10/30/18 06:14) Other-Enter Comments Home Medications: Medication Instructions Recorded Vit27&Calcium/Iron/FA 1 each PO DAILY 04/29/18 [] Acetaminophen [Tylenol 325mg (*)] 650 mg PO Q6HRS PRN tab 05/07/18 Ibuprofen [Motrin (*)] 600 mg PO Q6H tab 05/07/18 oxyCODONE IR [Oxycodone Ir (*)] 5 mg PO Q4HRS PRN tab 05/07/18 Medical Decision Making Differential Diagnosis: 38-year-old female status post tubal ligation, postoperative day 1 receiving general anesthesia, now here, unable to void. Bladder scan demonstrating 500 mL of urine. Offered patient straight cath with observation here verses Curry catheter. She elects for Curry catheter. Given that it is Friday she will need to keep it in place for 3 days until she can see her primary OBGYN or primary care doctor for catheter removal and voiding trial. She is comfortable with this. I have advised that she can return to the ER if she is worse in any way. We will check urinalysis here. Departure - Departure Disposition: Home, Routine, Self-Care Clinical Impression: Urinary retention Condition: Good Instructions: Acute Urinary Retention in Women (ED), Curry Catheter Placement and Care (ED) Additional Instructions: Please return to the emergency department if your worse in any way. Please call your primary care doctor's office today to arrange for a follow-up on Friday to have your catheter removed. If you have any difficulty arranging for this, please return to the emergency department and we will remove the catheter for you. Referrals: Barbie Streeter MD [Primary Care Provider] - As per Instructions Cathy Rodriguez MD [Medical Doctor] - As per Instructions
[2018-10-30 07:30] VITALS: BP 108/71
== END 2018-10-30 07:45 | disposition home or self-care (01) ==
PROC: 0T9B70Z Drainage of Bladder with Drainage Device, Via Natural or Artificial Opening (ICD-10-PCS; principal; 2018-10-30)
PROC: 4A0D7LZ Measurement of Urinary Volume, Via Natural or Artificial Opening (ICD-10-PCS; 2018-10-30)
DX: R33.9 Retention of urine, unspecified (principal)